=== PATIENT | male | born 1980 | race Caucasian/White ===

== ENCOUNTER 2020-09-03 10:47 | Observation (INO) | payer OTHER, SELFPAY ==
[2020-09-03] MEDS ORDERED: Nitroglycerin 2% Ointment 1 INCH/1 GM Packet ONE ×2 (11:09→11:11)
[2020-09-03 11:15] LABS: #Eosinphils 0.1 thou/uL (0.0-0.7); #Lymphocytes 2.9 thou/uL (1.20-3.40); #Monocytes 0.8 thou/uL (0.11-0.59); #Neutrophils 8.4 thou/uL (1.40-6.50); %Basophils 0.4 % (0.0-1.0); %Lymphocytes 23.6 % (21.0-51.0); %Monocytes 6.6 % (0.0-10.0); %Neutrophils 68.4 % (42.0-75.0); Hemoglobin 15.3 g/dL (14.0-18.0); Mean Corpuscular HGB CONC 34.4 g/dL (32.0-36.0); Mean Corpuscular Hemoglobin 32.7 pg (27.0-31.0); Mean Corpuscular Volume 95.2 fL (78.0-98.0); Mean Platelet Volume 7.3 fL (7.4-10.4); Platelet Count 331 thou/uL (130-400); RBC Distribution Width 11.9 % (11.5-14.5); Red Blood Cell (RBC) Count 4.67 mill/uL (4.70-6.10); White Blood Cell (WBC) Count 12.2 thou/uL (4.8-10.8)
[2020-09-03 11:41] LABS: ALT (SGPT) 20 U/L (8-55); AST (SGOT) 23 U/L (5-34); Albumin 4.5 g/dL (3.5-5.0); Alkaline Phosphatase 74 U/L (40-110); Anion Gap 16 mmol/L (10-20); BUN (Urea Nitrogen) 14 mg/dL (8.9-20.6); Bilirubin, Total 0.5 mg/dL (0.2-1.2); CK (CPK) 201 U/L (30-200); Calc. Creatinine Clearance 0 mL/min (70-130); Calcium 9.2 mg/dL (7.8-10.44); Carbon Dioxide 21 mmol/L (22-29); Chloride 108 mmol/L (98-107); Estimated GFR-MDRD Greater than 90; Globulin 2.7 g/dL (2.4-3.5); Glucose 101 mg/dL (70-105); Lipase 8 U/L (8-78); Potassium 4.7 mmol/L (3.5-5.1); Protein, Total 7.2 g/dL (6.0-8.3); Sodium 140 mmol/L (136-145)
--- NOTE | 2020-09-03 12:21 | RAD ---
PORTABLE CHEST 1 VIEW: DATE: 09/03/2020. TIME: 11:51 AM. HISTORY: Chest pain. FINDINGS: The heart size is normal. The lungs are well expanded without lobar consolidation, pneumothoraces, o r pleural effusions. IMPRESSION: No radiographic evidence of acute cardiopulmonary process. POS: MARIO
--- NOTE | 2020-09-03 12:34 | PDOC.HHP ---
Hospitalist HPI - History of Present Illness Chest pain History of Present Illness: Patient is a 39-year-old male with strong family history of heart disease presented to the emergency room with above complaints. Over the past few weeks patient has on and off chest pressure which is left- sided radiating to his jaw. The pain got worse this morning for which he presented to the emergency room. His blood pressure this morning was in systolic 180s. He describes the pain as stabbing with intermittent pressure. The pain is constant without any aggravating or relieving factor. He felt nauseous and was lightheaded. He also had mild diaphoresis without any syncope or palpitations. He denies recent immobilization or travel. No cough, shortness of breath, wheezing, sick contacts, nausea, heartburn or dyspepsia reported. In the emergency room his initial vital signs showed temperature 98.1 with r espiration of 16, pulse rate of 82 blood pressure of 147/95. His heart score was 3. His EKG showed sinus rhythm with nonspecific ST-T wave changes in the lateral leads. He received aspirin, IV fluid and a nitroglycerin patch was placed. His chest pain improved with nitroglycerin. PAST MEDICAL HISTORY: Reviewed with the patient and none PAST SURGICAL HISTORY: Reviewed with the patient and none ALLERGIES: Denies any drug allergy SOCIAL HISTORY: Former smoker. He smoked only for few years per patient report. He denies any alcohol or drug use. Currently lives at home with his family FAMILY HISTORY: Positive for premature coronary artery disease Hospitalist ROS - Review of Systems Respiratory: denies: cough, dry, shortness of breath, hemoptysis, SOB with excertion, pleuritic pain, sputum, wheezing, other Gastrointestinal: denies: nausea, vomiting, abdominal pain, diarrhea, constipation, melena, hematochezia, other All other systems reviewed; all pertinent +/- noted in HPI/Subj - Exam General Appearance: NAD Eye: PERRL, anicteric sclera ENT: normocephalic atraumatic, no oropharyngeal lesions Neck: supple, symmetric, no JVD, no thyromegaly Heart: RRR, no gallops, no rubs, normal peripheral pulses Heart - other findings: ? Some reproduction of chest pain on palpation Respiratory: CTAB, no wheezes, no rales, no ronchi Gastrointestinal: soft, non-tender, non-distended, normal bowel sounds Extremities: no cyanosis, no clubbing, no edema Extremities - other findings: Radial pulses palpable and equal bilaterally Skin: normal turgor, no lesions, no rashes Neurological: normal sensation to touch, no weakness, no focal deficits Musculoskeletal: normal tone, normal strength, no muscle wasting Psychiatric: normal affect, A&O x 3 Hospitalist Results - Labs Result Diagrams: 09/03/20 11:09/03/20 11:02 Lab results: WBC 12.2 thou/uL (4.8-10.8) H 09/03/20 11:02 Hgb 15.3 g/dL (14.0-18.0) 09/03/20 11:02 Hct 44.4 % (42.0-52.0) 09/03/20 11:02 MCV 95.2 fL (78.0-98.0) 09/03/20 11:02 Plt Count 331 thou/uL (130-400) 09/03/20 11:02 Neutrophils % 68.4 % (42.0-75.0) 09/03/20 11:02 Sodium 140 mmol/L (136-145) 09/03/20 11:02 Potassium 4.7 mmol/L (3.5-5.1) 09/03/20 11:02 Chloride 108 mmol/L (98-107) H 09/03/20 11:02 Carbon Dioxide 21 mmol/L (22-29) L 09/03/20 11:02 BUN 14 mg/dL (8.9-20.6) 09/03/20 11:02 Creatinine 0.91 mg/dL (0.7-1.3) 09/03/20 11:02 Glucose 101 mg/dL (70-105) 09/03/20 11:02 Calcium 9.2 mg/dL (7.8-10.44) 09/03/20 11:02 Total Bilirubin 0.5 mg/dL (0.2-1.2) 09/03/20 11:02 AST 23 U/L (5-34) 09/03/20 11:02 ALT 20 U/L (8-55) 09/03/20 11:02 Alkaline Phosphatase 74 U/L (40-110) 09/03/20 11:02 Creatine Kinase 201 U/L (30-200) H 09/03/20 11:02 Troponin I Less than 0.010 ng/mL (< 0.028) 09/03/20 11:02 B-Natriuretic Peptide Less than 10.0 pg/mL (0-100) 09/03/20 11:02 Serum Total Protein 7.2 g/dL (6.0-8.3) 09/03/20 11:02 Albumin 4.5 g/dL (3.5-5.0) 09/03/20 11:02 Lipase 8 U/L (8-78) 09/03/20 11:02 - EKG Interpretation EKG: Sinus rhythm with nonspecific ST-T wave changesreviewed by me - Radiology Interpretation Chest x-ray Status: image reviewed by me Additional Comment: Negative for infiltrate or edema Hospitalist H&P A/P - Plan Plan: Chest pain suspicious for coronary artery disease Strong family history of heart disease Former smoker Mild leukocytosisunlikely to be infectious Plan: Patient will be monitored in the telemetry unit. Serial troponins will be obta ined. He will be kept n.p.o. past midnight. Due to intermediate probability for coronary artery disease he will benefit from stress test. Continue aspirin. Add statins. Will check fasting lipid profile in a.m. Patient denies any dyspepsia or heartburn. His D-dimer was negative. Patient understands above plan of care
[2020-09-03] MEDS ORDERED: Nitroglycerin 0.4 MG TAB (25 Tab Bottle) SL PRN (12:41)
[2020-09-03] MEDS ORDERED: Ondansetron ODT 4 MG TAB PO PRN (12:43)
[2020-09-03] MEDS ORDERED: Ondansetron PF 4 MG/2 ML Vial IVP PRN (12:43)
[2020-09-03] MEDS ORDERED: Senokot S 8.6-50 MG TAB PO PRN (12:43)
[2020-09-03] MEDS ORDERED: Calcium Carbonate 500 MG ChewTAB PO PRN (12:43)
[2020-09-03] MEDS ORDERED: Acetaminophen 325 MG TAB PO PRN (12:43)
[2020-09-03] MEDS ORDERED: cloNIDine 0.1 MG TAB PO PRN (12:44)
[2020-09-03 15:11] LABS: Troponin I Less than 0.010 ng/mL (< 0.028)
[2020-09-03] MEDS ORDERED: diphenhydrAMINE 25 MG CAP PO PRN (17:34)
[2020-09-03 18:35] LABS: Troponin I Less than 0.010 ng/mL (< 0.028)
[2020-09-03 20:10] LABS: SARS-CoV-2 MS2 Positive; SARS-CoV-2 N Gene Negative; SARS-CoV-2 S Gene Negative; SARS-CoV-2 by NAA Not Detected (NotDetected); SARS-CoV-2 orf1ab Negative
[2020-09-03] MEDS: Famotidine 20 MG TAB PO SCH (21:02)
[2020-09-04 05:40] LABS: Cardiac Risk 4.1 (Less than 4.5)
[2020-09-04 07:38] VITALS: BP 144/95; TEMP 98.3
[2020-09-04] MEDS ORDERED: Aspirin 325 mg Enteric Coated Tablet PO SCH (09:00)
[2020-09-04] MEDS: Famotidine 20 MG TAB PO SCH (11:53)
--- NOTE | 2020-09-04 11:56 | NM ---
CARDIAC SPECT: HISTORY: A 39-year-old male with chest pain and a family history of coronary artery disease. TECHNIQUE: A myocardial perfusion scan is performed using the single isotope 1-day protocol with Technetium 99m sestamibi. 11 mCi were injected intravenously for the rest exam followed by [address] udy. Exercise stress is monitored and interpreted by Dr. Nix. FINDINGS: Homogeneous tracer distribution is seen in the myocardial segments on stress and rest images without fixed or reversible defects. GATED SPECT LVEF: 57%. WALL MOTION EXAM: Normal. IMPRESSION: Normal myocardial perfusion scan. POS: CARLAA
--- NOTE | 2020-09-04 13:48 | PDOC.DS.DS ---
Provider - Provider Date of Admission: 09/03/20 12:17 Date of Discharge: 09/04/20 Admitting Provider: Gabriel Christian MD Consultations: None Primary Care Physician: OUT OF TOWN Course - Hospital Course Hospital Course: Patient is a 39-year-old male with strong family history of heart disease presented to the emergency room with chest discomfort on 09/03. His EKG showed sinus rhythm with nonspecific ST-T wave changes. His heart score was 3. His troponins came back negative. He received aspirin along with IV fluids and nitroglycerin patch was placed in the emergency room. Please refer to the history and physical for further details. The patient was admitted to the hospital with a diagnosis of chest discomfort rule out acute coronary syndrome. Serial troponins remain negative. He underwent a exercise Cardiolite stress test that was negative for reversible ischemia. There was no wall motion abnormality. Ejection fraction was 57%. His chest pain is probably musculoskeletal. He appears stable for discharge. Final diagnosis: Chest discomfortacute coronary syndrome ruled out Strong family history of heart disease Former smoker Mild leukocytosisunlikely to be infectious Resuscitation Status: 09/03/20 12:43 Resuscitation Status Routine Resuscitation Status: FULL: Full Resuscitation - Labs Lab Results: 09/03/20 11:02 09/03/20 11:02 Abnormal Lab Results - Last 48 hrs 09/03/20 11:02: Chloride 108 H, Carbon Dioxide 21 L, Creatine Kinase 201 H 09/03/20 11:02: WBC 12.2 H, RBC 4.67 L, MCH 32.7 H, MPV 7.3 L, Neutrophils # 8.4 H, Monocytes # 0.8 H 09/03/20 11:02: D-Dimer Less than 0.27 L - Physical Exam Vitals: Vital Signs (12 hours) Temp Pulse Resp BP Pulse Ox 09/04/20 07:34 98.3 F 76 20 144/95 H 98 09/04/20 03:15 98.1 F 80 20 98/59 L 97 09/04/20 02:15 96 Weight Weight 221 lb 9 oz Physical Exam: The patient was seen and examined on the day of discharge. Plan - Discharge Medications Home Medications: Medication Instructions Recorded Confirmed Type No Known 09/03/20 09/03/20 History Allergies: No Known Allergies Allergy (Verified 09/03/20 14:46) - Follow up Plan Referrals: Kori Joy MD [MD Not on Staff] - 7 Days Disposition: HOME Quality - Care Measures CORE MEASURES:: N/A
== END 2020-09-04 12:44 | disposition home or self-care (01) ==
LOC: ERS 10:47 → ERHOLD 12:17 → 2SE 14:21
PROVIDERS: ADMIT Internal Medicine; ATTEND Internal Medicine
DX: R07.89 Other chest pain (principal); D72.829 Elevated white blood cell count, unspecified; Z87.891 Personal history of nicotine dependence; Z82.49 Family history of ischemic heart disease and other diseases of the circulatory system; Z20.828 Contact with and (suspected) exposure to other viral communicable diseases
CPT/HCPCS: 36415; 71045; 78452; 80053; 80061; 82550; 83690; 83880; 84484; 85025; 85379; 87635; 93005; 93017; 94760; A9500; G0378; Q0163; U0003

== ENCOUNTER 2024-04-03 15:30 | Observation (INO) | payer OTHER, SELFPAY ==
[~2024-04-03 15:30] MED LIST: Iopamidol-370 76% 500 ML MDV (1 ML CHARGE) ONE
[2024-04-03 16:01] LABS: #Basophils 0.03 10x3/uL (0.0-0.2); %Basophils 0.3 % (0.0-1.0); %Eosinophils 1.1 % (0.0-10.0); %Lymphocytes 18.5 % (21.0-51.0); %Monocytes 4.5 % (0.0-10.0); %Neutrophils 75.2 % (42.0-75.0); Hematocrit 46.1 % (42.0-52.0); Mean Corpuscular HGB CONC 34.7 g/dL (32.0-36.0); Mean Corpuscular Hemoglobin 31.9 pg (27.0-31.0); Mean Corpuscular Volume 91.8 fL (78.0-98.0); Mean Platelet Volume 9.6 fL (7.4-10.4); Platelet Count 338 10x3/uL (130-400); RBC Distribution Width 12.9 % (11.5-14.5); Red Blood Cell (RBC) Count 5.02 mill/uL (4.70-6.10)
[2024-04-03 16:20] LABS: ALT (SGPT) 39 U/L (8-55); AST (SGOT) 21 U/L (5-34); Albumin 4.2 g/dL (3.5-5.0); Alkaline Phosphatase 81 U/L (40-110); Anion Gap 13 mmol/L (10-20); BUN (Urea Nitrogen) 10 mg/dL (8.9-20.6); Bilirubin, Total 0.5 mg/dL (0.2-1.2); Calc. Creatinine Clearance 0 mL/min (70-130); Calcium 9.5 mg/dL (7.8-10.44); Carbon Dioxide 24 mmol/L (22-29); Chloride 107 mmol/L (98-107); Estimated GFR 107; Globulin 3.2 g/dL (2.4-3.5); Glucose 123 mg/dL (70-105); Potassium 4.6 mmol/L (3.5-5.1); Protein, Total 7.4 g/dL (6.0-8.3); Sodium 139 mmol/L (136-145)
[2024-04-03 16:23] LABS: Troponin I Less than 0.010 ng/mL (< 0.028)
[2024-04-03] MEDS ORDERED: Aspirin 81 mg Enteric Coated Tablet ONE (17:25)
[2024-04-03] MEDS ORDERED: Nitroglycerin 2% Ointment 1 INCH/1 GM Packet ONE (17:25)
[2024-04-03] MEDS ORDERED: Aspirin Chewable 81 MG TAB ONE (17:29)
[2024-04-03] MEDS ORDERED: Ondansetron PF 4 MG/2 ML Vial IVP PRN (19:19)
[2024-04-03] MEDS ORDERED: Nitroglycerin 2% Ointment 1 INCH/1 GM Packet TOP PRN (19:19)
[2024-04-03] MEDS ORDERED: Ondansetron ODT 4 MG TAB PO PRN (19:19)
[2024-04-03 19:32] LABS: Troponin I Less than 0.010 ng/mL (< 0.028)
[2024-04-03 19:46] LABS: Magnesium 2.1 mg/dL (1.6-2.6)
[2024-04-03] MEDS: ALPRAZolam 1 MG TAB PO PRN (22:04)
[2024-04-03] MEDS: Sodium Chloride 0.9% 1,000 ML IV SCH (22:04)
[2024-04-03] MEDS: Amlodipine 5 MG TAB PO SCH (22:04)
[2024-04-03] MEDS: Acetaminophen 325 MG TAB PO PRN (22:16)
[2024-04-03 22:30] VITALS: BMI 34.8
[2024-04-04 00:29] LABS: Troponin I Less than 0.010 ng/mL (< 0.028)
[2024-04-04 04:51] LABS: #Basophils 0.04 10x3/uL (0.0-0.2); %Basophils 0.4 % (0.0-1.0); %Eosinophils 2.4 % (0.0-10.0); %Lymphocytes 31.4 % (21.0-51.0); %Monocytes 6.9 % (0.0-10.0); %Neutrophils 58.4 % (42.0-75.0); Hematocrit 40.8 % (42.0-52.0); Hemoglobin 13.9 g/dL (14.0-18.0); Mean Corpuscular HGB CONC 34.1 g/dL (32.0-36.0); Mean Corpuscular Hemoglobin 32.4 pg (27.0-31.0); Mean Corpuscular Volume 95.1 fL (78.0-98.0); Mean Platelet Volume 9.8 fL (7.4-10.4); Platelet Count 289 10x3/uL (130-400); RBC Distribution Width 13.1 % (11.5-14.5); Red Blood Cell (RBC) Count 4.29 mill/uL (4.70-6.10)
[2024-04-04 05:07] LABS: Hemoglobin A1c 5.4 % (4.0-6.0)
[2024-04-04 05:19] LABS: Anion Gap 13 mmol/L (10-20); BUN (Urea Nitrogen) 12 mg/dL (8.9-20.6); Calc. Creatinine Clearance 164 mL/min (70-130); Calcium 8.6 mg/dL (7.8-10.44); Carbon Dioxide 23 mmol/L (22-29); Cardiac Risk 4.6 (Less than 4.5); Chloride 109 mmol/L (98-107); Cholesterol 209 mg/dl (< 200 Desired); Estimated GFR 103; Glucose 92 mg/dL (70-105); HDL Cholesterol 45 mg/dL (>60 Neg Risk); LDL Cholesterol, Calculated 147 mg/dL; Potassium 3.7 mmol/L (3.5-5.1); Sodium 141 mmol/L (136-145); Triglycerides 83 mg/dL (Less than 150)
[2024-04-04] MEDS: Aspirin Chewable 81 MG TAB PO SCH (09:10)
[2024-04-04] MEDS: Amlodipine 5 MG TAB PO SCH (09:10)
[2024-04-04] MEDS ORDERED: Regadenoson 0.4 MG/5 ML SYRINGE ONE (10:08)
[2024-04-04] MEDS ORDERED: Communication Order-Pharmacy FS SCH (17:30)
[2024-04-04] MEDS: Sodium Chloride 0.9% 1,000 ML IV SCH (17:55)
[2024-04-05 04:52] LABS: Anion Gap 13 mmol/L (10-20); BUN (Urea Nitrogen) 10 mg/dL (8.9-20.6); Calc. Creatinine Clearance 190 mL/min (70-130); Calcium 8.8 mg/dL (7.8-10.44); Carbon Dioxide 20 mmol/L (22-29); Chloride 106 mmol/L (98-107); Estimated GFR 113; Glucose 90 mg/dL (70-105); Potassium 3.5 mmol/L (3.5-5.1); Sodium 135 mmol/L (136-145)
[2024-04-05 05:55] LABS: #Basophils 0.03 10x3/uL (0.0-0.2); %Basophils 0.3 % (0.0-1.0); %Lymphocytes 31.1 % (21.0-51.0); %Monocytes 8.9 % (0.0-10.0); %Neutrophils 55.4 % (42.0-75.0); Hematocrit 43.6 % (42.0-52.0); Mean Corpuscular HGB CONC 34.4 g/dL (32.0-36.0); Mean Corpuscular Hemoglobin 31.9 pg (27.0-31.0); Mean Corpuscular Volume 92.8 fL (78.0-98.0); Platelet Count 287 10x3/uL (130-400); RBC Distribution Width 12.9 % (11.5-14.5)
[2024-04-05] MEDS ORDERED: Heparin 10,000 UNITS/ 10 ML VIAL ONE (06:43)
[2024-04-05] MEDS ORDERED: Verapamil 5 MG/2 ML VIAL ONE (06:43)
[2024-04-05] MEDS ORDERED: Nitroglycerin 50 MG/250 ML BOT 250 ML ONE (06:43)
[2024-04-05] MEDS ORDERED: Midazolam HCl 2 mg/2 ml Vial ONE (07:17)
[2024-04-05] MEDS ORDERED: fentaNYL 50 mcg/mL 1 mL Vial ONE (07:17)
[2024-04-05] MEDS ORDERED: Sodium Chloride 0.9% 200 ML IV PRN (08:04)
[2024-04-05] MEDS ORDERED: Acetaminophen/Codeine 30-300mg Tablet PO PRN (08:04)
[2024-04-05] MEDS ORDERED: Nitroglycerin 0.4 MG TAB (25 Tab Bottle) SL PRN (08:04)
[2024-04-05] MEDS ORDERED: Iopamidol 370 76% 100 ML VIAL ONE (09:47)
[2024-04-05] MEDS: Sodium Chloride 0.9% 500 ML IV SCH (10:53)
[2024-04-05 12:19] VITALS: BP 124/90; TEMP 98.4
== END 2024-04-05 14:16 | disposition home or self-care (01) ==
LOC: ERS 15:30 → ERHOLD 18:45 → 2SW 22:16
PROVIDERS: ADMIT Family Medicine; ATTEND Family Medicine
PROC: 4A023N7 Measurement of Cardiac Sampling and Pressure, Left Heart, Percutaneous Approach (ICD-10-PCS; principal; 2024-04-05)
DX: R07.9 Chest pain, unspecified (principal); I10 Essential (primary) hypertension; R94.39 Abnormal result of other cardiovascular function study; D72.829 Elevated white blood cell count, unspecified; F41.9 Anxiety disorder, unspecified; Z79.899 Other long term (current) drug therapy
CPT/HCPCS: 36415; 71046; 71275; 78452; 80048; 80053; 80061; 83036; 83735; 84443; 84484; 85025; 93005; 93017; 93458; 99152; A9502; C1769; C1894; G0378; J1644; J2250; J2785; J3010; J7050; Q9967